=== PATIENT | female | born 1995 | race Two or more races ===

== ENCOUNTER 2017-05-14 11:07 | Inpatient (IN) | payer OTHER ==
[~2017-05-14] VITALS: Ht 162.6 cm; Wt 69.9 kg
[~2017-05-14 11:07] MED LIST: ALBU18HF2 IH; ALBU2.5V13; IBUP-2030 PO; OMEP40CA34 PO; P20 PO
[2017-05-14] MEDS ORDERED: METHYLPREDNISOLONE SOD SUCC 125 MG/2 ML VIAL IV STA (11:24)
[2017-05-14] MEDS ORDERED: MAGNESIUM 2 G PREMIX 50 ML IV STA (11:24)
[2017-05-14] MEDS ORDERED: IPRATROPIUM BROMIDE (0.02%) 0.5MG/2.5ML NEB HHN STA (11:24)
[2017-05-14] MEDS ORDERED: SODIUM CHLORIDE 0.9% 1,000 ML IV ONE (11:29)
[2017-05-14 12:09] LABS: BASOPHILS % 0.4 % (0.0-2.0); EOSINOPHILS % 3.9 % (0.0-5.0); HEMATOCRIT. 44.8 % (36.0-48.0); HEMOGLOBIN. 14.9 g/dL (12.0-16.0); LYMPHOCYTES % 33.3 % (20.0-50.0); MEAN CORPUSCULAR HEMOGLOBIN 27.9 pg (28.0-32.0); MEAN CORPUSCULAR VOLUME 83.8 fL (81.0-99.0); MEAN PLATELET VOLUME 7.8 fl (7.4-10.4); MONOCYTES % 3.8 % (2.0-8.0); NEUTROPHILS % 58.6 % (40.0-76.0); PLATELET 332 x1000/uL (130-400); RED BLOOD CELL COUNT 5.35 mill/uL (4.2-5.4); RED CELL DISTRIBUTION WIDTH 14.6 % (11.6-14.6)
[2017-05-14 12:14] LABS: CHLORIDE 108 mEq/L (98-107)
[2017-05-14 12:23] LABS: CARBON DIOXIDE 24 mEq/L (21-32)
[2017-05-14 12:33] LABS: HCG SCREEN NEGATIVE
[2017-05-14] MEDS ORDERED: ALBUTEROL (0.083%) 2.5MG/3ML NEB HHN STA (14:11)
[2017-05-14 22:28] VITALS: BP 109/58
[2017-05-14] MEDS ORDERED: FLUT1DIS2 IH (23:00)
[2017-05-14] MEDS ORDERED: BUSP5TAB3 PO (23:00)
[2017-05-14] MEDS ORDERED: MAGNESIUM/ALUMINUM HYDROXIDE/SIMETHICONE 30ML UDC PO PRN (23:15)
[2017-05-14] MEDS ORDERED: ONDANSETRON HCL 4MG/2ML VIAL IV PRN (23:15)
[2017-05-14] MEDS ORDERED: IPRATROPIUM/ALBUTEROL 0.5-3(2.5)MG/3ML NEB INH PRN (23:15)
[2017-05-14] MEDS ORDERED: CLONIDINE 0.1MG TABLET PO PRN (23:15)
[2017-05-14] MEDS ORDERED: LORAZEPAM 0.5MG TABLET PO PRN (23:15)
[2017-05-14] MEDS ORDERED: ZOLPIDEM TARTRATE 5MG TABLET PO PRN (23:15)
[2017-05-14] MEDS ORDERED: DIPHENHYDRAMINE 50MG/ML VIAL IV PRN (23:15)
[2017-05-14] MEDS ORDERED: GUAIFENESIN 200MG/10ML SUGAR FREE UDC PO PRN (23:15)
[2017-05-14] MEDS ORDERED: ACETAMINOPHEN 325MG TABLET PO PRN (23:15)
[2017-05-15] VITALS: BP 114/72
[2017-05-15 04:00] VITALS: BP 101/44
[2017-05-15] MEDS: IPRATROPIUM/ALBUTEROL 0.5-3(2.5)MG/3ML NEB HHN SCH ×4 (04:22→15:10)
[2017-05-15] MEDS: METHYLPREDNISOLONE SOD SUCC 125 MG/2 ML VIAL IV SCH ×2 (05:20→14:49)
[2017-05-15] MEDS: SODIUM CHLORIDE 0.9% INJ 3ML FLUSH IVF SCH ×2 (05:21→14:52)
[2017-05-15 08:00] VITALS: BP 100/48
[2017-05-15 12:10] VITALS: BP 102/35
[2017-05-15 17:04] VITALS: BP 102/58
== END 2017-05-15 18:05 | disposition home or self-care (01) | DRG 141 ==
LOC: ER 11:07 → 5WST 15:47 → ENRESERV 20:31 → 5WST 23:57
PROVIDERS: ADMIT Internal Medicine; ATTEND Internal Medicine
DX: J45.902 Unspecified asthma with status asthmaticus (principal); E87.8 Other disorders of electrolyte and fluid balance, not elsewhere classified; J98.11 Atelectasis; F41.0 Panic disorder [episodic paroxysmal anxiety]; Z83.3 Family history of diabetes mellitus; Z90.49 Acquired absence of other specified parts of digestive tract
CPT/HCPCS: 36415; 71010; 80053; 84703; 85025; 94640; 96374; 99291; J2930; J3475; J7030; J7611; J7620

== ENCOUNTER 2020-10-16 22:15 | Inpatient (IN) | payer MEDICAID, OTHER ==
[~2020-10-16] VITALS: Ht 162.6 cm; Wt 112.5 kg
[~2020-10-16 22:15] MED LIST changes: +BUSP5TAB3 PO; +FLUT1DIS2 IH; +OMEP40CA12 PO; -OMEP40CA34 PO; -P20 PO
[2020-10-16] MEDS ORDERED: METHYLPREDNISOLONE SOD SUCC 125 MG/2 ML VIAL IV STA (22:51)
[2020-10-16] MEDS ORDERED: IPRATROPIUM BROMIDE (0.02%) 0.5MG/2.5ML NEB HHN STA (22:51)
[2020-10-16] MEDS ORDERED: ALBUTEROL (0.083%) 2.5MG/3ML NEB HHN STA (22:51)
[2020-10-16] MEDS ORDERED: MAGNESIUM 4 G PREMIX 100 ML IV ONE (23:00)
[2020-10-17] VITALS (14 sets, daily range): BP systolic 104–165; BP diastolic 24–101
[2020-10-17 00:06] LABS: BG BASE EXCESS -3.2 mmol/L (-2.0-2.0); BG CARBOXYHEMOGLOBIN 0.3 % (0.5-1.5); BG DEOXYHEMOGLOBIN 0.9 % (0.0-5.0); BG FRACTION INSPIRED OXYGEN 50; BG HCO3 ACT 21.4 mmol/L (22.0-26.0); BG METHEMOGLOBIN 0.1 % (0.0-1.5); BG OXYGEN SATURATION 99.1 % (92.0-98.5); BG OXYHEMOGLOBIN 98.7 % (94.0-97.0); BG PCO2 36.8 mmHg (35.0-45.0); BG PH 7.383 (7.350-7.450); BG PO2 202.5 mmHg (75.0-100.0); BG SAMPLE SITE LEFT RADIAL; BG TOTAL HEMOGLOBIN 11.8 g/dL (12.0-18.0); BG TOTAL RESPIRATORY RATE 25 b/min; BG VENT MODE MASK - BIPAP
[2020-10-17 00:26] LABS: BASOPHILS % 0.2 % (0.0-2.0); EOSINOPHILS % 2.9 % (0.0-5.0); HEMATOCRIT. 37.2 % (36.0-48.0); HEMOGLOBIN. 11.9 g/dL (12.0-16.0); LYMPHOCYTES % 34.8 % (20.0-50.0); MEAN CORPUSCULAR HEMOGLOBIN 22.9 pg (28.0-32.0); MEAN PLATELET VOLUME 7.8 fl (7.4-10.4); MONOCYTES % 4.5 % (2.0-8.0); NEUTROPHILS % 57.6 % (40.0-76.0); PLATELET 536 x1000/uL (130-400); RED BLOOD CELL COUNT 5.17 mill/uL (4.2-5.4); RED CELL DISTRIBUTION WIDTH 17.4 % (11.6-14.6)
[2020-10-17 00:33] LABS: CHLORIDE 107 mEq/L (98-107)
[2020-10-17] MEDS ORDERED: ACETAMINOPHEN 325MG TABLET PO ONE (00:45)
[2020-10-17] MEDS ORDERED: AZITHROMYCIN 500 MG TABLET PO ONE (01:00)
[2020-10-17] MEDS ORDERED: CEFTRIAXONE 1 G PREMIX 50 ML IV ONE (01:00)
[2020-10-17] MEDS ORDERED: ACETAMINOPHEN 325MG TABLET PO PRN (08:45)
[2020-10-17] MEDS ORDERED: HYDROCODONE/ACETAMINOPHEN 5/325MG TABLET PO PRN (08:45)
[2020-10-17] MEDS ORDERED: ONDANSETRON HCL 4MG/2ML INJ IV PRN (08:45)
[2020-10-17] MEDS ORDERED: IPRATROPIUM/ALBUTEROL 0.5-3(2.5)MG/3ML NEB HHN PRN ×2 (08:45→09:30)
[2020-10-17] MEDS ORDERED: DOCUSATE SODIUM 100MG CAPSULE PO PRN (08:45)
[2020-10-17] MEDS ORDERED: ENOXAPARIN 40MG/0.4ML SYR SUBCUT SCH (09:00)
[2020-10-17] MEDS: LORATADINE 10MG TABLET PO SCH (13:01)
[2020-10-17] MEDS: METHYLPREDNISOLONE SOD SUCC 125 MG/2 ML VIAL IV SCH ×3 (13:03→23:47)
[2020-10-17] MEDS ORDERED: MONT10TA21 PO (14:36)
[2020-10-17] MEDS: IPRATROPIUM/ALBUTEROL 0.5-3(2.5)MG/3ML NEB HHN SCH ×2 (14:50→20:16)
[2020-10-17 15:18] LABS: CLARITY URINE CLEAR (CLEAR); COLOR URINE YELLOW (YELLOW); KETONES URINE NEGATIVE (NEGATIVE); LEUKOCYTE ESTERASE URINE NEGATIVE (NEGATIVE); NITRITE URINE NEGATIVE (NEGATIVE); OCCULT BLOOD URINE NEGATIVE (NEGATIVE); PROTEIN URINE NEGATIVE (NEGATIVE); UROBILINOGEN URINE 0.2 E.U./dL (0.2-1.0)
[2020-10-17] MEDS ORDERED: PNEUMOCOCCAL 23-VAL P-SAC VAC 0.5 ML IM ONE (15:30)
[2020-10-17 15:52] LABS: *AMPHETAMINES SCREEN URINE NEGATIVE (NEGATIVE); *BARBITURATES SCREEN URINE NEGATIVE (NEGATIVE); *BENZODIAZEPINES SCREEN URINE NEGATIVE (NEGATIVE); *COCAINE SCREEN URINE NEGATIVE (NEGATIVE); METHADONE URINE SCREEN NEGATIVE (NEGATIVE); OPIATES URINE SCREEN NEGATIVE (NEGATIVE)
[2020-10-17 15:53] LABS: PHENCYCLIDINE URINE SCREEN NEGATIVE (NEGATIVE)
[2020-10-17 16:07] LABS: CANNABINOID URINE SCREEN PRESUMTIVE POSITIVE (NEGATIVE)
[2020-10-17] MEDS: MONTELUKAST SODIUM 10MG TABLET PO SCH (16:49)
[2020-10-17] MEDS: FAMOTIDINE 20MG TABLET PO SCH (21:01)
[2020-10-18] VITALS (9 sets, daily range): BP systolic 95–170; BP diastolic 40–95
[2020-10-18] MEDS ORDERED: GUAIFENESIN/CODEINE 200-20MG/10ML UDC PO PRN
[2020-10-18] MEDS ORDERED: GUAIFENESIN-DM 200MG-20MG/10ML UDC PO PRN (00:15)
[2020-10-18] MEDS: IPRATROPIUM/ALBUTEROL 0.5-3(2.5)MG/3ML NEB HHN SCH ×3 (02:03→20:03)
[2020-10-18] MEDS: METHYLPREDNISOLONE SOD SUCC 125 MG/2 ML VIAL IV SCH ×2 (05:25→12:15)
[2020-10-18 07:24] LABS: HEMATOCRIT. 33.6 % (36.0-48.0); HEMOGLOBIN. 10.8 g/dL (12.0-16.0); MEAN CORPUSCULAR HEMOGLOBIN 23.5 pg (28.0-32.0); MEAN CORPUSCULAR VOLUME 72.8 fL (81.0-99.0); MEAN PLATELET VOLUME 7.7 fl (7.4-10.4); PLATELET 490 x1000/uL (130-400); RED BLOOD CELL COUNT 4.61 mill/uL (4.2-5.4); RED CELL DISTRIBUTION WIDTH 17.4 % (11.6-14.6)
[2020-10-18 07:39] LABS: CHLORIDE 108 mEq/L (98-107)
[2020-10-18 07:45] LABS: PHOSPHORUS 3.1 mg/dL (2.5-4.9)
[2020-10-18] MEDS: ENOXAPARIN 30MG/0.3ML SYR SUBCUT SCH ×2 (08:55→21:04)
[2020-10-18] MEDS: FAMOTIDINE 20MG TABLET PO SCH ×2 (08:55→21:05)
[2020-10-18] MEDS: LORATADINE 10MG TABLET PO SCH (08:55)
[2020-10-18 15:23] LABS: PLATELET ESTIMATE INCREASED
[2020-10-18] MEDS: MONTELUKAST SODIUM 10MG TABLET PO SCH (17:19)
[2020-10-18] MEDS: METHYLPREDNISOLONE SOD SUCC 40 MG/ML VIAL IV SCH (21:05)
[2020-10-19] VITALS (7 sets, daily range): BP systolic 108–129; BP diastolic 45–76
[2020-10-19] MEDS: IPRATROPIUM/ALBUTEROL 0.5-3(2.5)MG/3ML NEB HHN SCH ×2 (01:27→08:18)
[2020-10-19] MEDS: METHYLPREDNISOLONE SOD SUCC 40 MG/ML VIAL IV SCH (05:06)
[2020-10-19 08:22] LABS: BASOPHILS % 0.1 % (0.0-2.0); HEMATOCRIT. 34.5 % (36.0-48.0); HEMOGLOBIN. 10.8 g/dL (12.0-16.0); LYMPHOCYTES % 13.1 % (20.0-50.0); MEAN CORPUSCULAR HEMOGLOBIN 22.9 pg (28.0-32.0); MEAN CORPUSCULAR VOLUME 73.3 fL (81.0-99.0); MEAN PLATELET VOLUME 7.9 fl (7.4-10.4); MONOCYTES % 4.2 % (2.0-8.0); NEUTROPHILS % 82.6 % (40.0-76.0); PLATELET 482 x1000/uL (130-400); RED BLOOD CELL COUNT 4.71 mill/uL (4.2-5.4); RED CELL DISTRIBUTION WIDTH 17.9 % (11.6-14.6)
[2020-10-19 08:42] LABS: CHLORIDE 110 mEq/L (98-107)
[2020-10-19] MEDS: FAMOTIDINE 20MG TABLET PO SCH (09:31)
[2020-10-19] MEDS: LORATADINE 10MG TABLET PO SCH (09:32)
[2020-10-19] MEDS: ENOXAPARIN 30MG/0.3ML SYR SUBCUT SCH (09:32)
== END 2020-10-19 12:20 | disposition home or self-care (01) | DRG 133 ==
LOC: ER 22:15 → 5EST 10-17 01:48 → EDBEDREQSVC 10-17 11:15 → ENRESERV 10-17 11:21
PROVIDERS: ADMIT Internal Medicine; ATTEND Internal Medicine
PROC: 5A09357 Assistance with Respiratory Ventilation, Less than 24 Consecutive Hours, Continuous Positive Airway Pressure (ICD-10-PCS; principal; 2020-10-17)
DX: J96.01 Acute respiratory failure with hypoxia (principal); J45.901 Unspecified asthma with (acute) exacerbation; F41.9 Anxiety disorder, unspecified; D72.829 Elevated white blood cell count, unspecified; E66.9 Obesity, unspecified; F32.9 Major depressive disorder, single episode, unspecified; F12.90 Cannabis use, unspecified, uncomplicated; R79.89 Other specified abnormal findings of blood chemistry; T38.0X5A Adverse effect of glucocorticoids and synthetic analogues, initial encounter; Z79.899 Other long term (current) drug therapy; Z68.41 Body mass index [BMI] 40.0-44.9, adult; Z90.49 Acquired absence of other specified parts of digestive tract; Y92.89 Other specified places as the place of occurrence of the external cause; Z71.51 Drug abuse counseling and surveillance of drug abuser; Z71.3 Dietary counseling and surveillance
CPT/HCPCS: 36415; 36600; 71045; 80048; 80053; 80305; 81003; 82375; 83735; 84100; 85025; 93005; 93971; 94640; 94644; 94660; 97162; 97166; 99291; J0696; J1650; J2920; J2930; J3475

== ENCOUNTER 2021-08-30 00:13 | Emergency (ER) | payer MEDICAID, OTHER ==
[~2021-08-30] VITALS: Ht 154.9 cm; Wt 91.0 kg
[~2021-08-30 00:13] MED LIST changes: -FLUT1DIS2 IH; -IBUP-2030 PO; +MONT10TA21 PO; -OMEP40CA12 PO
[2021-08-30 00:19] VITALS: BP 136/84
[2021-08-30] MEDS ORDERED: ALBUTEROL (0.083%) 2.5MG/3ML NEB HHN STA (00:26)
[2021-08-30] MEDS ORDERED: IPRATROPIUM BROMIDE (0.02%) 0.5MG/2.5ML NEB HHN STA (00:26)
[2021-08-30] MEDS ORDERED: PREDNISONE 20MG TABLET PO ONE (00:45)
[2021-08-30] MEDS ORDERED: MAGNESIUM 2 G PREMIX 50 ML IV STA (01:29)
[2021-08-30] MEDS ORDERED: METHYLPREDNISOLONE SOD SUCC 125 MG/2 ML VIAL IV STA (01:29)
[2021-08-30] MEDS ORDERED: P50 MT (05:20)
== END 2021-08-30 05:40 | disposition home or self-care (01) ==
LOC: ER 00:13
DX: J45.901 Unspecified asthma with (acute) exacerbation (principal); F12.10 Cannabis abuse, uncomplicated; Z79.899 Other long term (current) drug therapy
CPT/HCPCS: 71045; 94644; 96365; 96366; 96375; 99284; J2930; J3475; Z7610; J7512